=== PATIENT | female | born 1970 | race Caucasian/White ===

== ENCOUNTER 2016-11-30 00:04 | Emergency (ER) | payer OTHER ==
[~2016-11-30] VITALS: Ht 170.2 cm; Wt 83.0 kg
[~2016-11-30 00:04] MED LIST: HYDR-762 PO; PEN500 PO
[2016-11-30 00:08] VITALS: Ht 170.2 cm; Wt 83.0 kg
[2016-11-30] MEDS ORDERED: HYDROCODONE/APAP (10/325) TAB PO ONE (00:30)
--- NOTE | 2016-11-30 02:21 | RADRPT ---
PROCEDURE: Ultrasound of the pelvis. CLINICAL INDICATION: Pain TECHNIQUE: Transabdominal and transvaginal ultrasound of the pelvis was performed to better evalua te the pelvic viscera. COMPARISON: 03/15/2015 FINDINGS: LAST MENSTRUAL PERIOD: Unavailable UTERUS: Size: 8.5 x 4.6 x 6.7 cm. The uterine texture is homogeneous. The endometrium measures 1.4 mm which is within normal limits. RIGHT OVARY: Size: 6.5 x 3.8 x 4.3 cm. There is a 3.1 x 3.1 x 2.7 cm simple cyst. Normal Doppler flow is noted t o the right ovary. LEFT OVARY: The ovary is not visualized. No adnexal masses are seen. CUL-DE-SAC: There is no abnormal free fluid. IMPRESSION: Normal endometrium. No evidence of ovarian torsion. RPTAT: HIKT .Charlie Doty MD, Date Time Electronically viewed and signed by .Charlie Doty MD, on 11/30/2016 02:20 .T/
[2016-11-30] MEDS ORDERED: TRAM50TA2 PO (02:56)
[2016-11-30 03:00] VITALS: BP 116/76; PULSE 67; RESP 16; TEMP 98.9
--- NOTE | 2016-11-30 03:01 | ERD ---
ER Documentation Chief Complaint Date/Time DATE: 11/30/16 TIME: 03:00 Chief Complaint pelvic and lower back pain HPI This a 46-year-old female who is here for chronic pelvic pain. The patient states that she has had chronic pelvic pain on a daily basis for the past 3-4 years. Patient states that the pain begins with prolonged standing. She says the pain is in the bilateral inguinal region and low back. She states that she has no dysuria no vaginal bleeding. She says her last menstrual cycle was a year and a half ago. She had 1 oophorectomy due to an ovarian cyst. ROS All systems reviewed and are negative except as per history of present illness. Medications Home Meds Active Scripts Tramadol HCl (Tramadol HCl) 50 Mg Tablet, 50 MG PO Q4 Y for PAIN, #20 TAB Prov:MICHAEL SMITH DO 11/30/16 Hydrocodone Bit-Acetaminophen* ([place]*) 10-325 Mg Tablet, 1 TAB PO Q6 Y for PAIN , #7 TAB Prov:PETE AGUILAR MD 03/23/16 Penicillin V Potassium* (Penicillin V K*) 500 Mg Tab, 500 MG PO QID for 7 Days, TAB Prov:PETE AGUILAR MD 03/23/16 Allergies Allergies: Coded Allergies: Sulfa (Sulfonamide Antibiotics) (Verified Allergy, Unknown, 03/15/15) PMhx/Soc History of Surgery: Yes (, ectopic, tubal ligation. 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 Neck: Full range of motion. No meningismus, no lymphadenopathy. Resp: Clear to auscultation bilaterally, no wheezing, rhonchi, rales Cardio: Regular rate and rhythm, no murmurs, S1 S2 present Abd: Soft, mild bilateral inguinal tenderness no hernia, non distended. Normal bowel sounds, no guarding or rebound, no pulsitile abdominal masses or bruits Skin: No petechiae or rashes, no ecchymosis , no maculopapular rash Back: No midline or flank tenderness Ext: No cyanosis, or edema, FROM x 4, normal inspection, neurovascularly intact x 4 Neur: Awake and alert, STR 5/5 x 4, sensation intact x 4, no focal findings, cerebellum intact Psych: Normal Mood and Affect Results 24 hrs Current Medications Medications (Trade) Dose Ordered Sig/Ella Route PRN Reason Start Time Stop Time Status Last Admin Dose Admin Acetaminophen/ Hydrocodone Bitart ([place] (10/325)) 1 tab ONCE ONCE PO 11/30/16 00:30 11/30/16 00:31 DC 11/30/16 00:43 Procedures/MDM PROCEDURE: Ultrasound of the pelvis. CLINICAL INDICATION: Pain TECHNIQUE: Transabdominal and transvaginal ultrasound of the pelvis was performed to better evaluate the pelvic viscera. COMPARISON: 03/15/2015 FINDINGS: LAST MENSTRUAL PERIOD: Unavailable UTERUS: Size: 8.5 x 4.6 x 6.7 cm. The uterine texture is homogeneous. The endometrium measures 1.4 mm which is within normal limits. RIGHT OVARY: Size: 6.5 x 3.8 x 4.3 cm. There is a 3.1 x 3.1 x 2.7 cm simple cyst. Normal Doppler flow is noted to the right ovary. LEFT OVARY: The ovary is not visualized. No adnexal masses are seen. CUL-DE-SAC: There is no abnormal free fluid. IMPRESSION: Normal endometrium. No evidence of ovarian torsion. RPTAT: HIKT .Charlie Doty MD, MD Date Time Electronically viewed and signed by .Charlie Doty MD, on 11/30/2016 02:20 .T/ CC: MICHAEL SMITH DO Apparently the patient has a court date in a few hours and needs a form stating that she has to have a sitdown job. The patient is doing community service for driving without a license. I feel this is her underlying reason why she is here. Her chronic pain is daily and not worse than usual so her visit today is to gain a letter from me to change her community service status from a standing job to a sitting job in my opinion Departure Diagnosis: Primary Impression: Pelvic pain Condition: Stable Patient Instructions: Pelvic Pain, Unknown Cause MICHAEL SMITH DO Nov 30, 2016 03:01
== END 2016-11-30 03:15 | disposition home or self-care (01) ==
LOC: E/R 00:04
DX: R10.2 Pelvic and perineal pain (principal); F17.210 Nicotine dependence, cigarettes, uncomplicated; J45.909 Unspecified asthma, uncomplicated; I10 Essential (primary) hypertension; R40.2142 Coma scale, eyes open, spontaneous, at arrival to emergency department; R40.2252 Coma scale, best verbal response, oriented, at arrival to emergency department; R40.2362 Coma scale, best motor response, obeys commands, at arrival to emergency department
CPT/HCPCS: 76830; 76856; Z7610

== ENCOUNTER 2017-03-01 12:33 | Emergency (ER) | payer OTHER ==
[~2017-03-01] VITALS: Ht 170.2 cm; Wt 81.5 kg
[~2017-03-01 12:33] MED LIST changes: +TRAM50TA2 PO
[2017-03-01 12:39] VITALS: Ht 170.2 cm; Wt 81.5 kg
[2017-03-01] MEDS ORDERED: CLINDAMYCIN 900 MG/D5W (PMX) 50 ML IVPB STA (15:35)
[2017-03-01] MEDS ORDERED: ONDANSETRON 4 MG INJ IV STA (15:35)
[2017-03-01] MEDS ORDERED: PIPER-TAZO 3.375 GM IV (PMX) 100 ML IVPB STA (15:35)
[2017-03-01] MEDS ORDERED: SODIUM CHLORIDE 0.9% 1L BAG IV* STA (15:35)
[2017-03-01] MEDS ORDERED: HYDROmorphONE 1 MG/ML SYG IV STA ×2 (15:35→19:10)
[2017-03-01] MEDS ORDERED: VANCOMYCIN 1 GM (PMX) 250 ML IVPB STA (15:35)
[2017-03-01] MEDS ORDERED: DIPHTH/TET/ACEL PERTUSS (ADULT) 0.5 ML VIAL IM* ONE (16:00)
[2017-03-01 16:19] LABS: ADD SCAN DIFF NO
[2017-03-01 16:22] LABS: BASOPHILS % 0.2 % (0.0-2.0); EOSINOPHILS # 0.1 10^3/ul (0.0-0.5); EOSINOPHILS % 1.2 % (0.0-7.0); HEMATOCRIT 36.9 % (37.0-47.0); HEMOGLOBIN 12.5 g/dl (12.0-16.0); LYMPHOCYTES # 1.8 10^3/ul (0.8-2.9); LYMPHOCYTES % 15.3 % (15.0-51.0); MEAN CORPUSCULAR HEMOGLOBIN 29.3 pg (29.0-33.0); MEAN CORPUSCULAR HGB CONC 33.9 g/dl (32.0-37.0); MEAN CORPUSCULAR VOLUME 86.6 fl (82.0-101.0); MEAN PLATELET VOLUME 9.6 fl (7.4-10.4); MONOCYTE # 0.7 10^3/ul (0.3-0.9); NEUTROPHIL # 8.9 10^3/ul (1.6-7.5); NEUTROPHILS % 76.9 % (39.0-77.0); PLATELET COUNT 269 10^3/UL (140-415); RED BLOOD COUNT 4.26 10^6/ul (4.20-5.40); RED CELL DISTRIBUTION WIDTH 12.8 % (11.5-14.5); WHITE BLOOD COUNT 11.6 10^3/ul (4.8-10.8)
[2017-03-01 16:31] LABS: INR 1.02; PROTIME 13.4 Sec (12.2-14.2)
[2017-03-01 16:32] LABS: PARTIAL THROMBOPLASTIN TIME 22.6 Sec (25.0-35.0)
[2017-03-01 16:36] LABS: ALBUMIN 4.2 g/dl (3.3-4.9)
--- NOTE | 2017-03-01 16:38 | RADRPT ---
PROCEDURE: XR Chest. CLINICAL INDICATION: Possible sepsis. Wrist pain. TECHNIQUE: PA and Lateral views of the chest were obtained. COMPARISON: None. FINDINGS: The soft tissues are normal. The bony elements are normal. The heart, left side aorta, cardiomedia stinal silhouette, pulmonary vasculature and hilar structures are normal. The lungs are clear. The costophrenic angles are normal. IMPRESSION: 1. Normal chest x-ray RPTAT:AAJJ Physician Chris Date Time Electronically viewed and signed by Sherif Drake Physician on 03/01/2017 16:37 MAI/
[2017-03-01 16:39] LABS: ALBUMIN/GLOBULIN RATIO 1.23; BILIRUBIN,INDIRECT 1.3 mg/dl (0-1.1); BILIRUBIN,TOTAL 1.3 mg/dl (0.2-1.3); CREATININE 0.88 mg/dl (0.44-1.00); TOTAL PROTEIN 7.6 g/dl (6.1-8.1)
[2017-03-01 16:40] LABS: CALCIUM 9.3 mg/dl (8.4-10.2)
--- NOTE | 2017-03-01 16:41 | RADRPT ---
PROCEDURE: XR Left Wrist. CLINICAL INDICATION: Left wrist pain. TECHNIQUE: AP, lateral and oblique views of the left wrist were performed. COMPARISON: No prior studies are available for comparison. FINDINGS: The soft tissues of the hand and wrist are swollen. The bony elements and joint spaces are normal. IMPRESSION: 1. Diffuse soft tissue swelling of the left hand and wrist. 2. No fracture or dislocation is identified. 3. A navicular view was not performed. RPTAT:AAJJ Physician Chris Date Time Electronically viewed and signed by Sherif Drake Physician on 03/01/2017 16:41 MAI/
--- NOTE | 2017-03-01 17:50 | ERA ---
ER Documentation Chief Complaint Date/Time DATE: 03/01/17 TIME: 17:47 Chief Complaint LT HAND ABSCESS AND RT HAND BEE STING, PAIN HPI 46-year-old female who presents emergency room with an abscess to the left hand. the patient was not initially forthright with information but she did eventually admit that she used IV drugs in the site of abscess. The patient has an abscess to the left hand with associated erythema warmth and tenderness with significant pain in the left hand. She is right-hand dominant. She did have a mild bee sting to the right forearm that is mildly irritated but no anaphylaxis lip swelling or urticaria. ROS All systems reviewed and are negative except as per history of present illness. Medications Home Meds Discontinued Scripts Tramadol HCl (Tramadol HCl) 50 Mg Tablet, 50 MG PO Q4 Y for PAIN, #20 TAB Prov:MICHAEL SMITH DO 11/30/16 Hydrocodone Bit-Acetaminophen* ([place]*) 10-325 Mg Tablet, 1 TAB PO Q6 Y for PAIN , #7 TAB Prov:PETE AGUILAR MD 03/23/16 Penicillin V Potassium* (Penicillin V K*) 500 Mg Tab, 500 MG PO QID for 7 Days, TAB Prov:PETE AGUILAR MD 03/23/16 Allergies Allergies: Coded Allergies: Sulfa (Sulfonamide Antibiotics) (Verified Allergy, Unknown, 03/01/17) PMhx/Soc History of Surgery: Yes (, ectopic, tubal ligation. "fluid in L ovary ") Anesthesia Reaction: No Hx Neurological Disorder: No Hx Respiratory Disorders: Yes (Asthma) Hx Cardiac Disorders: Yes (HTN) Hx Psychiatric Problems: No Hx Miscellaneous Medical Probl: No Hx Alcohol Use: Yes ("quit drinking") Hx Substance Use: Yes ("used to be an addict") Hx Tobacco Use: Yes ("1/2 pack daily") Smoking Status: Current every day smoker FmHx Family History: No diabetes Physical Exam Vitals Vital Signs Date Time Temp Pulse Resp B/P Pulse Ox O2 Delivery O2 Flow Rate FiO2 03/01/17 18:30 99.0 92 20 128/76 98 Room Air 03/01/17 16:16 99.5 89 18 137/80 97 Room Air 03/01/17 12:39 99.7 96 18 131/83 97 Physical Exam General: Disheveled female Head: Normocephalic, atraumatic. Eyes: Pupils equally reactive, EOM intact ENT: Moist mucous membranes Neck: Supple, no lymphadenopathy Respiratory: Lungs clear bilaterally, no distress Cardiovascular: RRR, no murmurs, rubs, or gallops Abdominal: Soft, non-tender, non-distended, no peritoneal signs : Deferred MSK: Left hand is significantly edematous with diffuse erythema, bullae formation and pustule noted overlying the snuffbox of the left hand and wrist. 2+ radial pulses. No crepitus noted to the left upper extremity. Mild lymphangitic spread. Soft compartments. Patient was slight hyperemia to the right forearm no intact stinger. Neurologic: Alert and oriented, moving all extremities, normal speech, no focal weakness, no cerebellar signs Skin: As documented above Psych: Normal mood Result Diagram: 03/01/17 1602 03/01/17 1602 Results 24 hrs Laboratory Tests Test 03/01/17 16:02 03/01/17 18:50 White Blood Count 11.610^3/ul Red Blood Count 4.2610^6/ul Hemoglobin 12.5g/dl Hematocrit 36.9% Mean Corpuscular Volume 86.6fl Mean Corpuscular Hemoglobin 29.3pg Mean Corpuscular Hemoglobin Concent 33.9g/dl Red Cell Distribution Width 12.8% Platelet Count 23003^3/UL Mean Platelet Volume 9.6fl Neutrophils % 76.9% Lymphocytes % 15.3% Monocytes % 6.0% Eosinophils % 1.2% Basophils % 0.2% Nucleated Red Blood Cells % 0.0/100WBC Neutrophils # 8.910^3/ul Lymphocytes # 1.810^3/ul Monocytes # 0.710^3/ul Eosinophils # 0.110^3/ul Basophils # 0.010^3/ul Nucleated Red Blood Cells # 0.010^3/ul Prothrombin Time 13.4Sec Prothrombin Time Ratio 1.0 INR International Normalized Ratio 1.02 Activated Partial Thromboplast Time 22.6Sec Sodium Level 139mmol/L Potassium Level 4.0mmol/L Chloride Level 102mmol/L Carbon Dioxide Level 25mmol/L Anion Gap 16 Blood Urea Nitrogen 18mg/dl Creatinine 0.88mg/dl Glucose Level 102mg/dl Lactic Acid Level 1.7mmol/L 1.0mmol/L Calcium Level 9.3mg/dl Total Bilirubin 1.3mg/dl Direct Bilirubin 0.00mg/dl Indirect Bilirubin 1.3mg/dl Aspartate Amino Transf (AST/SGOT) 22IU/L Alanine Aminotransferase (ALT/SGPT) 23IU/L Alkaline Phosphatase 64IU/L Total Protein 7.6g/dl Albumin 4.2g/dl Globulin 3.40g/dl Albumin/Globulin Ratio 1.23 Serum HCG, Qualitative NEGATIVE Current Medications Medications (Trade) Dose Ordered Sig/Ella Route PRN Reason Start Time Stop Time Status Last Admin Dose Admin Sodium Chloride 2530 ml 2,530 ml BOLUS OVER 2 HOURS STAT IV* 03/01/17 15:35 03/01/17 15:38 DC 03/01/17 16:24 Vancomycin HCl 250 ml @ 125 mls/hr ONCE STAT IVPB 03/01/17 15:35 03/01/17 17:34 DC 03/01/17 19:19 Clindamycin HCl/ Dextrose 50 ml @ 50 mls/hr ONCE STAT IVPB 03/01/17 15:35 03/01/17 16:34 DC 03/01/17 18:02 Piperacillin Sod/ Tazobactam Sod (Zosyn 3.375gm/ 100 ml (Pmx)) 100 ml @ 100 mls/hr ONCE STAT IVPB 03/01/17 15:35 03/01/17 16:34 DC 03/01/17 16:23 Hydromorphone HCl (Dilaudid) 0.5 mg ONCE STAT IV 03/01/17 15:35 03/01/17 15:39 DC 03/01/17 16:23 Ondansetron HCl (Zofran Inj) 4 mg ONCE STAT IV 03/01/17 15:35 03/01/17 15:39 DC 03/01/17 16:23 Diphtheria/ Tetanus/Acell Pertussis (Adacel) 0.5 ml ONCE ONCE IM* 03/01/17 16:00 03/01/17 16:01 DC 03/01/17 16:22 Hydromorphone HCl (Dilaudid) 0.5 mg ONCE STAT IV 03/01/17 19:10 03/01/17 19:11 DC 03/01/17 19:18 Procedures/MDM EKG, MONITORS, & DIAGNOSTIC IMAGING: EKG: I reviewed and interpreted a 12-lead EKG. Rhythm: Normal sinus rhythm Ectopy: None Intervals: No abnormalities ST segments: No elevations or depressions T waves: No contiguous inversions Chest x-ray: I reviewed and interpreted a 1 view of the chest Mediastinum: No enlargement Cardiac silhouette: No cardiomegaly Airspace: Clear lung christianson bilaterally without evidence of pneumothorax Bones: No evidence of fracture X-ray left wrist: I reviewed and interpreted multiple views of the x-ray Bones: No evidence of acute fracture dislocation or subluxation Soft tissue: No evidence of foreign body LAB INTERPRETATION: No lactic acidosis, normal sodium MEDICAL DECISION MAKING: The patient presents with signs and symptoms consistent with abscess and cellulitis and significant hand infection of the left upper extremity secondary to IV drug use. Given the location of the patient's abscess I would prefer not to perform I&D at the bedside. I believe a hand surgery consultation for likely OR I&D and debridement would be appropriate. The patient has no evidence of necrotizing process but is at risk for this. The patient will be given a 30 cc/kg bolus of saline, antibiotics that include vancomycin, cefepime , clindamycin. The patient will be given pain medication. My facility does not have hand surgery. Therefore, I will attempt to transfer the patient to a higher level of care facility. Hand surgery consultation is imperative to treat and manage this patient. ER COURSE: The patient has required multiple doses of pain medication. She is awaiting transfer to a higher level of care. We have found placement for the patient had all of the view under Dr. Mcgrath. The patient is stable for transfer. The benefits outweigh the risks. I kept the patient and/or family informed of laboratory and diagnostic imaging results throughout the emergency room course. DISPOSITION PLAN: Transfer to all of you for higher level of care for management of severe hand infection Departure Diagnosis: Primary Impression: Abscess of left hand Additional Impressions: Left arm cellulitis IV drug abuse Condition: Stable JOSE DE JESUS MENCHACA MD March 01, 2017 17:50
[2017-03-01 21:21] VITALS: BP 111/60; PULSE 71; RESP 18; TEMP 99.2
== END 2017-03-01 21:17 | disposition short-term general hospital (02) ==
LOC: FTE 12:33 → E/R 21:17
DX: M71.04 Abscess of bursa, hand (principal); L03.114 Cellulitis of left upper limb; I10 Essential (primary) hypertension; F17.210 Nicotine dependence, cigarettes, uncomplicated; J45.909 Unspecified asthma, uncomplicated
CPT/HCPCS: 36415; 71010; 73110; 80053; 83605; 84703; 85025; 85610; 85730; 87040; 90471; 90715; 93005; 96365; 96366; 96375; J1170; J2405; J2543; J3370; J7030; Z7502; Z7610

== ENCOUNTER 2017-10-21 18:04 | Emergency (ER) | payer OTHER ==
[~2017-10-21] VITALS: Wt 82.8 kg
[2017-10-21 19:03] LABS: URINE BLOOD (Dip) POC 2+ (NEGATIVE)
[2017-10-21] MEDS ORDERED: CEPHALEXIN 500 MG CAP PO ONE (19:30)
[2017-10-21] MEDS ORDERED: PHENAZOPYRIDINE 100 MG TAB PO ONE (19:30)
[2017-10-21] MEDS ORDERED: CEPH-443 PO (19:37)
[2017-10-21] MEDS ORDERED: PHEN-537 PO (19:37)
--- NOTE | 2017-10-21 19:43 | ERD ---
ER Documentation Chief Complaint Chief Complaint DYSURIA X2DAYS HPI This 39-year-old female presents with dysuria for last 2 days. She denies any fevers, vomiting, abdominal pain, flank pain. ROS All systems reviewed and are negative except as per history of present illness. Medications Home Meds Active Scripts Phenazopyridine Hcl* (Pyridium*) 100 Mg Tab, 100 MG PO TID, #6 TAB Prov:CRISTINA SKY MD 10/21/17 Cephalexin* (Keflex*) 500 Mg Capsule, 500 MG PO QID for 5 Days, CAP Prov:CRISTINA SKY MD 10/21/17 Allergies Allergies: Coded Allergies: Sulfa (Sulfonamide Antibiotics) (Verified Allergy, Unknown, 03/01/17) PMhx/Soc Medical and Surgical Hx: pt denies Medical Hx History of Surgery: Yes ( section, oophrectomy) Anesthesia Reaction: No Hx Neurological Disorder: No Hx Respiratory Disorders: Yes (Asthma) Hx Cardiac Disorders: Yes (HTN) Hx Psychiatric Problems: No Hx Miscellaneous Medical Probl: No Hx Alcohol Use: No Hx Substance Use: Yes ("used to be an addict") Hx Tobacco Use: Yes Smoking Status: Current every day smoker Physical Exam Vitals Vital Signs Date Time Temp Pulse Resp B/P Pulse Ox O2 Delivery O2 Flow Rate FiO2 10/21/17 18:07 97.6 84 20 173/82 99 Physical Exam Const: [] Head: Atraumatic Eyes: Normal Conjunctiva ENT: Normal External Ears, Nose and Mouth. Neck: Full range of motion..~ No meningismus. Resp: Clear to auscultation bilaterally Cardio: Regular rate and rhythm, no murmurs Abd: Soft, non tender, non distended. Normal bowel sounds Skin: No petechiae or rashes Back: No midline or flank tenderness Ext: No cyanosis, or edema Neur: Awake and alert Psych: Normal Mood and Affect Results 24 hrs Laboratory Tests Test 10/21/17 19:04 Bedside Urine pH (LAB) 5.5 Bedside Urine Protein (LAB) 1+ Bedside Urine Glucose (UA) Negative Bedside Urine Ketones (LAB) Trace Bedside Urine Blood 2+ Bedside Urine Nitrite (LAB) Negative Bedside Urine Leukocyte Esterase (L 1+ Current Medications Medications (Trade) Dose Ordered Sig/Ella Route PRN Reason Start Time Stop Time Status Last Admin Dose Admin Cephalexin (Keflex) 500 mg ONCE ONCE PO 10/21/17 19:30 10/21/17 19:31 DC Phenazopyridine HCl (Pyridium) 200 mg ONCE ONCE PO 10/21/17 19:30 10/21/17 19:31 DC Procedures/MDM Urine shows blood and leukocytes. HCG is negative. Patient has signs and symptoms of acute cystitis without evidence of abdominal pain, sepsis, pyelonephritis or signs or symptoms to suggest tubo-ovarian abscess and hCG is negative. Patient will be treated with Keflex and Pyridium, instructions for fluids, return precautions for fevers, vomiting, abdominal pain, new worsening symptoms or primary care doctor this week. The patient was stable with no new complaints during the ER course. Clinically, there is no current evidence to suggest meningitis, sepsis, acute abdomen, pneumonia, acute coronary syndrome, pulmonary embolism, or any other emergent condition appearing to require further evaluation or hospitalization. The patient should certainly return for any new or worsening symptoms per the aftercare instructions. They should otherwise follow-up with her primary care doctor for reevaluation this week. Departure Diagnosis: Primary Impression: UTI (urinary tract infection) Urinary tract infection type: acute cystitis Hematuria presence: without hematuria Qualified Code: N30.00 - Acute cystitis without hematuria Additional Impression: Dysuria Condition: Stable Patient Instructions: Understanding Urinary Tract Infections (UTIs) Additional Instructions: Check for fevers, vomiting, abdominal pain, new or worsening symptoms. Drink home. CRISTINA SKY MD Oct 21, 2017 19:43
== END 2017-10-21 19:55 | disposition home or self-care (01) ==
LOC: FTE 18:04
DX: N30.00 Acute cystitis without hematuria (principal); I10 Essential (primary) hypertension; J45.909 Unspecified asthma, uncomplicated; F17.210 Nicotine dependence, cigarettes, uncomplicated
CPT/HCPCS: 81003; Z7502; Z7610; 99283